=== PATIENT | female | born 1980 | race Caucasian/White ===

== ENCOUNTER → 2025-11-04 | Outpatient (CLI) | payer BC, SELFPAY ==
--- NOTE | 2025-11-04 11:28 | RAD_ITS ---
PROCEDURE: KNEE 4 OR MORE VIEWS 11/04/2025 REASON FOR EXAM: RIGHT KNEE CLICKING TECHNIQUE: Procedure Code: RADKN Modality: DX Procedure: KNEE 4 OR MORE VIEWS COMPARISON: None provided. RAD/Knee 4 or More Views IMPRESSION: No significant right knee joint effusion is seen. Minimal to mild tricompartmental right knee degenerative changes are present, b ut without apparent joint narrowing. Satisfactory osseous alignment is seen. No fracture or dislocation is evident. Reading Location: [place] [id number]
== END | disposition home or self-care (01) ==
LOC: MTRAD 11:28
PROVIDERS: PCP Family Medicine; Referring Provider Physician Assistant Surgical; Visit Provider Physician Assistant Surgical
DX: M25.561 Pain in right knee (principal)
CPT/HCPCS: 73564